=== PATIENT | male | born 1965 | race Caucasian/White ===

== ENCOUNTER → 2016-06-08 | Outpatient (CLI) | payer OTHER ==
[~2016-06-08] MED LIST: AMPHOTERICIN NASAL; CEFDINIR300 MG PO; CYMBALTA60 MG PO; FENOFIBRATE145 M1 PO; GEMFIBROZIL 60600 MG PO; LYRICA225 MG PO; MS CONTIN15 MG PO; PREDNISONE 10 M10 MG; PREVACID30 MG PO; TOBI PODHALER28 M1 INH; TOPROL XL50 MG PO; TRICOR145 MG PO; XANAX1 MG PO; XARELTO20 MG PO; ZANAFLEX2 M1 PO
[2016-06-08 11:49] LABS: HEMATOCRIT 48.1 % (42.0-52.0); HEMOGLOBIN 16.7 gm/dL (14.0-18.0); MCH 30.3 pg (26.0-34.0); MCHC 34.6 g/dL (28.0-37.0); MCV 87.5 fL (80.0-100.0); RDW 13.7 % (10.5-14.5); WBC 5.4 thou/uL (4.0-11.0)
[2016-06-08 11:56] LABS: MANUAL DIFF YES
[2016-06-08 12:06] LABS: ANION GAP 8 mmol/L (7-16); BUN 17 mg/dL (7-18); CALCIUM 9.4 mg/dL (8.5-10.1); CHLORIDE 103 mmol/L (98-107); CO2 30 mmol/L (21-32); CREATININE 1.5 mg/dL (0.7-1.3); GLUCOSE 92 mg/dL (74-106); POTASSIUM 4.2 mmol/L (3.5-5.1); SODIUM 141 mmol/L (136-145)
[2016-06-08 12:10] LABS: ALBUMIN 4.2 g/dL (3.4-5.0); ALKALINE PHOSPHATASE 44 U/L (46-116); CHOLESTEROL 163 mg/dL (<200); HDL CHOLESTEROL 33 mg/dL (>40); LDL CHOLESTEROL 99 mg/dL (<100); SGOT 76 U/L (15-37); SGPT 111 U/L (30-65); TC:HDL 4.9 Ratio (Not establshd); TOTAL BILIRUBIN 0.9 mg/dL (<0.1-1.0); TOTAL PROTEIN 7.8 g/dL (6.4-8.2); TRIGLYCERIDE 159 mg/dL (<150); VLDL 32 mg/dL (<40)
[2016-06-08 12:57] LABS: TOTAL CELL COUNT 100
[2016-06-08 12:58] LABS: ABSOLUTE NEUTROPHILS 1.7 thou/uL (1.4-8.2)
[2016-06-08 12:59] LABS: PLATELET COUNT 188 thou/uL (150-400)
== END ==
LOC: LABMALL 11:16
DX: E78.4 Other hyperlipidemia (principal)

== ENCOUNTER → 2016-07-15 | Outpatient (CLI) | payer OTHER | LOC: LABMALL 11:32 | DX: I82.91 Chronic embolism and thrombosis of unspecified vein (principal); I82.609 Acute embolism and thrombosis of unspecified veins of unspecified upper extremity; D68.59 Other primary thrombophilia; M60.9 Myositis, unspecified ==

== ENCOUNTER → 2016-07-28 | Outpatient (CLI) | payer OTHER ==
[2016-07-28 15:30] LABS: FOLIC ACID 9.4 ng/mL (8.6-58.9); TSH 0.962 uIU/mL (0.358-3.740)
== END ==
LOC: LABMALL 13:38
DX: R53.83 Other fatigue (principal); R53.81 Other malaise

== ENCOUNTER → 2016-11-12 | Outpatient (CLI) | payer OTHER ==
[~2016-11-12] VITALS: Ht 195.6 cm; Wt 165.6 kg
[~2016-11-12] MED LIST changes: +LOPRESSOR50 PO; +MEDROLDOSEPACK PO; +OXYCODONE HCL10 MG PO; +OXYCONTIN15 MG PO; -ZANAFLEX2 M1 PO; +ZANAFLEX4 MG PO
--- NOTE | ~2016-11-12 | HPC ---
[facility] [place] [address] PAIN MANAGEMENT CONSULTATION Name: SANGEETA MCKEON Room #: REG [facility] Noemí.#: [id number] Admission: 11/12/16 Attend Phys: Jonatan Edmondson DO Discharge: Date of : 65 Report #: [id number] THIS REPORT FOR: //name// CC: SRIRAM Edmondson The patient is a 51-year-old gentleman seen in consultation at the request of Dr. Sriram Gallo for assistance with management of axial and low back pain. The patient states he has had chronic mid to low back pain exacerbated with standing, walking and bending. He states his pain is anywhere from a 6 to "12" on a 0-10 VAS. Describes continuous, constant, shooting, cramping, aching, throbbing, sharp, stabbing pain. Notes that seems to get some relief with medication, exacerbated with any and all movement. He has become quite sedentary over the past few years. He is retired police patrol officer. He has had 2 neck surgeries, initially in 2006, again in 2010. The cervical radicular symptoms are actually fairly nominal. His back pain is the primary culprit impacting his functional status. His pain impact score is quite high, averaging 68/70. REVIEW OF SYSTEMS: Complete review of systems attached to chart and gone over with the patient. He is , seen in the company of his who is supportive. He does not drink alcohol to excess. Does not use tobacco products. He had been hospitalized for pancreatitis 2014, multiple recurrent sinus infections prompting 7 total ENT surgeries, last one at [place], now some 6 months ago. He has been stable on OxyContin 15 mg b.i.d. and oxycodone 10 mg b.i.d. for breakthrough pain. Doing reasonably well with this being appropriately managed by Dr. Gallo, though again increasing axial low back pain and recently increasing pain into his thighs. Denies specific myelopathic symptoms, no bowel or bladder incontinence, no specific weakness, though he feels overall he is deconditioned. History of dyslipidemia and history of DVT, currently on Xarelto. The patient states he was recently diagnosed with fibromyalgia. Lumbar spondylosis, gastroesophageal reflux, DVT, anxiety disorder, fatty liver, renal mass, pancreatitis, chronic sinusitis, benign essential hypertension, depressive disorder, male hypogonadism, hyperlipidemia, and chronic pain syndrome. Medication list was reconciled, which include Xanax, Cialis, Cymbalta 60 mg, Tricor, Prevacid for gastroesophageal reflux, metoprolol, Nasonex, the aforementioned OxyContin 15 mg b.i.d. and oxycodone 10 mg b.i.d., Lyrica 225 mg twice a day, Xarelto, testosterone, Zanaflex 4 mg t.i.d. Physical exam reveals a 195 cm, 165 kilogram gentleman, BMI is 43.3 kilograms per meter squared. Blood pressure is 128/86, pulse 64, respirations 16. Cranial nerves 2-12 are grossly intact. Pupils equal and reactive to light and [facility] [address] [place] [address] PAIN MANAGEMENT CONSULTATION Name: SANGEETA MCKEON Room #: REG [facility] Pradhan#: [id number] Admission: 11/12/16 Attend Phys: Jonatan Edmondson DO Discharge: Date of : 65 Report #: [id number] accommodation. Extraocular muscles are intact. Cervical range of motion is adequate. Thyroid is enlarged. He has somewhat of a "bull neck." Upper extremity strength is symmetric. Heart is regular and rhythmical at this time. Lungs clear to auscultation. Has an endomorphic build. Rises from chair using armrest. Gait is modestly antalgic. Lumbar flexion exacerbates low back pain. MRI notes minimal S shaped curvature of the thoracolumbar spine. Again, fairly large gentleman, body mass index over 40 kilograms per meter squared having difficult time appreciating much of the curvature though he does have pain from about the mid thoracic area down with significant tenderness over the SI joint as well. Lower extremity strength is generally symmetric. Patellar and Achilles reflexes are diminished but preserved. Straight leg raise is negative. Jaxon test is positive bilaterally as is the Gaenslen's test. I did review diagnostic studies including MRI of the lumbar spine from 11/28/2015 noting degenerative changes of the lumbar spine, L3-L4, L4-L5 and L5-S1 with some disk height loss and facet changes, though no significant central or neural foraminal stenosis is noted. ASSESSMENT: Symptomatic thoracolumbar scoliosis and spondylosis, sacroiliac joint dysfunction, morbid obesity and multiple comorbidities including chronic pain syndrome requiring high risk complex medication management being appropriately managed by Dr. Gallo, hyperlipidemia, male hypogonadism, depressive disorder, benign essential hypertension, chronic sinusitis, status post multiple surgeries, pancreatitis and fatty liver, chronic anxiety, history of deep venous thrombosis, currently on Xarelto, gastroesophageal reflux, lumbar spondylosis, and fibromyalgia. RECOMMENDATIONS: The patient is still on appropriate medications presently. With multiple pain generators, primarily in the axial back and SI joints, we have elected to refer the patient to physical therapy for core stabilization exercises, specifically home exercise regimen. I did take the liberty of writing for a short course of a Medrol Dosepak today. We will see the patient back in about 3 weeks for reevaluation. We will plan on targeting either the SI joints or the lumbar facets depending on which area is causing most pain at that time. Thank you for allowing me to participate in the patient's care. I will keep you abreast of his progress. By: [id number] Jonatan Edmondson, /nt
[2016-11-12 13:52] VITALS: BP 128/86
== END | disposition home or self-care (01) ==
LOC: PAIN 12:36
DX: M41.85 Other forms of scoliosis, thoracolumbar region (principal); M47.894 Other spondylosis, thoracic region; M47.896 Other spondylosis, lumbar region; M53.3 Sacrococcygeal disorders, not elsewhere classified; G89.4 Chronic pain syndrome; I10 Essential (primary) hypertension; M79.7 Fibromyalgia; J32.8 Other chronic sinusitis; K85.90 Acute pancreatitis without necrosis or infection, unspecified; E78.5 Hyperlipidemia, unspecified; K21.9 Gastro-esophageal reflux disease without esophagitis; E66.01 Morbid (severe) obesity due to excess calories; F41.8 Other specified anxiety disorders; F32.89 Other specified depressive episodes; E29.1 Testicular hypofunction; Z79.891 Long term (current) use of opiate analgesic; Z86.718 Personal history of other venous thrombosis and embolism; Z98.890 Other specified postprocedural states; J45.909 Unspecified asthma, uncomplicated; Z88.8 Allergy status to other drugs, medicaments and biological substances; Z79.899 Other long term (current) drug therapy

== ENCOUNTER → 2017-03-11 | Outpatient (CLI) | payer OTHER | LOC: CAT 03-10 14:26 | DX: K76.0 Fatty (change of) liver, not elsewhere classified (principal); N28.1 Cyst of kidney, acquired; N32.89 Other specified disorders of bladder; K85.90 Acute pancreatitis without necrosis or infection, unspecified ==

== ENCOUNTER 2017-06-24 16:15 | Emergency (ER) | payer OTHER ==
[~2017-06-24] VITALS: Ht 193 cm; Wt 157.8 kg
[2017-06-24] MEDS ORDERED: ERYTHROMYCIN500 MG PO (18:36)
[2017-06-24] MEDS ORDERED: TOPAMAX100 MG PO (18:36)
[2017-06-24] MEDS ORDERED: TRAMADOL 50 MG50 MG PO (19:32)
[2017-06-24] MEDS ORDERED: NAPROSYN500 MG PO (19:32)
== END 2017-06-24 19:54 | disposition home or self-care (01) ==
LOC: ER 16:15
DX: S16.1XXA Strain of muscle, fascia and tendon at neck level, initial encounter (principal); S97.01XA Crushing injury of right ankle, initial encounter; S09.8XXA Other specified injuries of head, initial encounter; M54.9 Dorsalgia, unspecified; T68.XXXA Hypothermia, initial encounter; I10 Essential (primary) hypertension; M79.7 Fibromyalgia; G89.29 Other chronic pain; F32.9 Major depressive disorder, single episode, unspecified; K21.9 Gastro-esophageal reflux disease without esophagitis; F41.9 Anxiety disorder, unspecified; Z86.718 Personal history of other venous thrombosis and embolism; Z88.6 Allergy status to analgesic agent; Z88.8 Allergy status to other drugs, medicaments and biological substances; Z77.22 Contact with and (suspected) exposure to environmental tobacco smoke (acute) (chronic); V89.2XXA Person injured in unspecified motor-vehicle accident, traffic, initial encounter; Y93.89 Activity, other specified; Y92.89 Other specified places as the place of occurrence of the external cause; Y99.8 Other external cause status

== ENCOUNTER 2019-02-02 16:50 | Emergency (ER) | payer OTHER ==
[~2019-02-02] VITALS: Ht 193 cm; Wt 146.5 kg
[~2019-02-02 16:50] MED LIST changes: +ERYTHROMYCIN500 MG PO; +NAPROSYN500 MG PO; +TOPAMAX100 MG PO; +TRAMADOL 50 MG50 MG PO
[2019-02-02 18:00] LABS: URINE BILIRUBIN NEGATIVE (Negative); URINE BLOOD NEGATIVE (Negative); URINE CLARITY CLEAR; URINE COLOR YELLOW; URINE GLUCOSE-RANDOM* NEGATIVE (Negative); URINE KETONES NEGATIVE (Negative); URINE LEUKOCYTES-REFLEX NEGATIVE (Negative); URINE NITRITE-REFLEX NEGATIVE (Negative); URINE PROTEIN (DIPSTICK) NEGATIVE (Negative); URINE SPECIFIC GRAVITY 1.015 (1.005-1.035); URINE UROBILINOGEN 0.2 E.U./dl (0.2-1.0)
[2019-02-02 18:53] LABS: ABSOLUTE NEUTROPHILS 2.7 thou/uL (1.4-8.2); BASOPHILS 1.2 % (0.0-2.0); EOSINOPHILS 2.5 % (0.0-3.0); HEMATOCRIT 48.7 % (42.0-52.0); LYMPHOCYTES 39.8 % (24.0-44.0); MCH 29.1 pg (26.0-34.0); MCHC 32.8 g/dL (28.0-37.0); MCV 88.6 fL (80.0-100.0); MONOCYTES 7.4 % (1.0-8.0); PLATELET COUNT 191 thou/uL (150-400); POLYS 49.1 % (36.0-66.0); RDW 14.4 % (10.5-14.5); WBC 5.6 thou/uL (4.0-11.0)
[2019-02-02 19:04] LABS: CREATININE 1.4 mg/dL (0.7-1.3); MAGNESIUM 1.8 mg/dL (1.8-2.4); POTASSIUM 3.8 mmol/L (3.5-5.1)
[2019-02-02 21:00] VITALS: BP 146/81
== END 2019-02-02 21:26 | disposition home or self-care (01) ==
LOC: ER 16:50
PROVIDERS: Emergency Medicine
DX: R41.82 Altered mental status, unspecified (principal); I10 Essential (primary) hypertension; M79.7 Fibromyalgia; G89.4 Chronic pain syndrome; K21.9 Gastro-esophageal reflux disease without esophagitis; Z98.890 Other specified postprocedural states; Z79.899 Other long term (current) drug therapy; Z86.718 Personal history of other venous thrombosis and embolism

== ENCOUNTER → 2020-09-12 | Outpatient (CLI) | payer OTHER ==
[2020-09-12 14:23] LABS: URINE BILIRUBIN NEGATIVE (Negative); URINE BLOOD 2+ (Negative); URINE CLARITY CLEAR; URINE COLOR YELLOW; URINE GLUCOSE-RANDOM* NEGATIVE (Negative); URINE KETONES TRACE (Negative); URINE LEUKOCYTES-REFLEX NEGATIVE (Negative); URINE NITRITE-REFLEX NEGATIVE (Negative); URINE PROTEIN (DIPSTICK) NEGATIVE (Negative); URINE SPECIFIC GRAVITY 1.025 (1.005-1.035); URINE UROBILINOGEN 0.2 E.U./dl (0.2-1.0)
[2020-09-12 14:24] LABS: ABSOLUTE NEUTROPHILS 1.7 thou/uL (1.4-8.2); BASOPHILS 0.6 % (0.0-2.0); EOSINOPHILS 4.8 % (0.0-3.0); HEMATOCRIT 45.3 % (42.0-52.0); LYMPHOCYTES 51.7 % (24.0-44.0); MCH 29.3 pg (26.0-34.0); MCHC 33.2 g/dL (28.0-37.0); MCV 88.5 fL (80.0-100.0); MONOCYTES 9.1 % (1.0-8.0); PLATELET COUNT 161 thou/uL (150-400); POLYS 33.8 % (36.0-66.0); RBC 5.12 mil/uL (4.50-6.00); RDW 13.8 % (10.5-14.5); WBC 5.1 thou/uL (4.0-11.0)
[2020-09-12 14:37] LABS: ALBUMIN 3.8 g/dL (3.4-5.0); CALCIUM 8.1 mg/dL (8.5-10.1); CREATININE 1.5 mg/dL (0.7-1.3); POTASSIUM 4.3 mmol/L (3.5-5.1); TOTAL BILIRUBIN 0.6 mg/dL (0.2-1.0); TOTAL PROTEIN 6.9 g/dL (6.4-8.2)
[2020-09-12 14:48] LABS: CALCIUM OXALATE 0-3 Few /LPF (None Seen)
[2020-09-12 14:49] LABS: BACTERIA-REFLEX 1-9 Few /HPF (None Seen); CASTS None Seen /LPF (None Seen); SQUAMOUS 0-3 Few /LPF (0-3); URINE RBC 3-10 Few /HPF (NONE SEEN); URINE WBC-REFLEX 0-5 Rare /HPF (0-5)
== END ==
LOC: LAB 13:25
DX: Z12.5 Encounter for screening for malignant neoplasm of prostate (principal); N20.0 Calculus of kidney; E78.5 Hyperlipidemia, unspecified; M79.7 Fibromyalgia